=== PATIENT | male | born 1960 | race Caucasian/White ===

== ENCOUNTER 2020-09-25 16:02 | Emergency (ER) | payer OTHER ==
[~2020-09-25] VITALS: Ht 165.1 cm; Wt 56.7 kg
[2020-09-25] MEDS ORDERED: HYDR1TAB94 PO (20:33)
== END 2020-09-25 20:51 | disposition home or self-care (01) ==
LOC: ER 16:02
DX: S52.502A Unspecified fracture of the lower end of left radius, initial encounter for closed fracture (principal); W18.30XA Fall on same level, unspecified, initial encounter
CPT/HCPCS: 29125; 73090; 99283-25; A9270